=== PATIENT | female | born 1945 | race Caucasian/White ===

== ENCOUNTER → 2017-03-18 | Day surgery (SDC) | payer OTHER ==
[~2017-03-18] MED LIST: ATROPINE SULFATE 1% OPHT SOLN 2 ML BTL ONE; BUPIVACAINE HCL PF 0.75% 10 ML VIAL OTHER ONE; DEXAMETHASONE SOD PHOS 4 MG/ML VIAL ONE; EPINEPHrine HCL (1:1000) 1 MG/ML VIAL ONE; FLURBIPROFEN 0.03% OPHT SOLN 2.5 ML BTL ONE; HYALURONIDASE HUMAN 150 UNIT/1 ML VIAL OTHER ONE; HYALURONIDASE/LIDOCAINE/BUPIVACAINE 11 ML SYR TL ONE; LACTATED RINGER'S 1000 ML INJ 1,000 ML ONE; LIDOCAINE HCL 4% PF 5 ML AMP OTHER ONE; NEOMYCIN/POLYMYXIN/DEXAMETHASONE OPTH OINT 3.5 GM TUBE ONE; PHENYLEPHRINE HCL 2.5 % OPTH SOLN 15 ML BTL ONE; PROPOFOL 200 MG/20 ML AMP IV ONE; SODIUM CHLORIDE 0.9% INJ 10 ML ONE; TETRACAINE 0.5% OPTH SOLN 15 ML BTL ONE; TROPICAMIDE 1% OPHT SOLN 15 ML BTL ONE; ceFAZolin INJ 1,000 MG VIAL ONE
--- NOTE | 2017-04-06 10:41 | TN ---
cc: KODY GOYAL MD DATE OF SURGERY: 03/18/2017 DATE OF : 1945 PREOPERATIVE DIAGNOSIS Retinal detachment, right eye. POSTOPERATIVE DIAGNOSIS Retinal detachment, right eye. PROCEDURE Pars plana vitrectomy, endolaser, gas-fluid exchange, right eye. ANESTHESIA MAC. SURGEON Ravi. COMPLICATIONS None. DETAILS OF PROCEDURE After informed consent was obtained, the patient was given retrobulbar anesthesia. She was then brought to the operating room and prepared and draped in the usual sterile fashion. A wire lid speculum was placed in the patient's right eye. 23-gauge vitrectomy cannulas were then placed in the lower temporal, superotemporal and supranasal quadrants, 3 mm posterior to the corneoscleral limbus. An infusion cannula was placed lower temporally. Core vitrectomy was then performed. There was already a posterior vitreous detachment. A vitrectomy was carried out as far as possible to the vitreous base taking care to remove vitreous from around the retinal break. A complete air-fluid exchange was then performed through a posterior retinotomy. The retina flattened nicely. Endolaser was used to treat the retinal breaks as well as the vitreous base for 360 degrees and the retinotomy. The air was then exchanged for a 16% C3F8. The three vitrectomy cannulas were then removed. Subconjunctival injections of dexamethasone and Ancef were placed. An Atropine drop, Maxitrol and a patch and shield were then applied. The patient tolerated the procedure well. There were no complications. She will remain upright over the next week. [facility]. Kody Goyal MD TAB/BT /2:19 PM /10:29 AM
== END | disposition home or self-care (01) ==
LOC: ESDC 13:00
PROVIDERS: ATTEND Ophthalmology Retina Specialist
DX: H33.21 Serous retinal detachment, right eye (principal)
CPT/HCPCS: 00145; 67108; J0171; J0690; J1100; J7120; J3473